=== PATIENT | male | born 1980 | race Caucasian/White ===

== ENCOUNTER → 2019-12-16 07:04 | Outpatient (NON) | payer MEDICARE, SELFPAY ==
[2019-12-17 02:03] LABS: SARS-CoV-2 RNA PCR Positive
== END ==
PROVIDERS: Visit Provider Internal Medicine
DX: U07.1 COVID-19 (principal)
CPT/HCPCS: 87635; C9803; U0003

== ENCOUNTER 2019-12-16 12:09 | Inpatient (IN) | payer MEDICARE, MEDICAID, SELFPAY ==
[2019-12-16] VITALS (9 sets, daily range): BP systolic 121–147; BP diastolic 77–87; PULSE 88–99; RESP 16–33; TEMP 37.2–37.6; O2SAT 96–98; BMI 32.5
--- NOTE | ~2019-12-16 | XR_ITS ---
EXAMINATION: XR chest 1V portable DATE: 12/16/2019 13:15 INDICATION: Shortness of breath. Cough. TECHNIQUE: A single frontal view of the chest was obtained. COMPARISON: Chest 2 views 01/09/2018 FINDINGS: Lung volumes are small. There are patchy airspace opacities involving all lung zones bilate rally. No pleural effusion or pneumothorax. Cardiomegaly is noted. IMPRESSION: 1. Diffuse lung disease, consistent with pneumonia or less likely pulmonary edema. 2. Cardiomegaly, which may be exaggerated by anteroposterior technique. Reviewed, dictated and finalized at location A. IMPRESSION: 1. Diffuse lung disease, consistent with pneumonia or less likely pulmonary k[place] ma. 2. Cardiomegaly, which may be exaggerated by anteroposterior technique.
--- NOTE | 2019-12-16 12:37 | ECG_ITS ---
Measurements Intervals [place] Rate: 92 P: 32 MN: 141 QRS: 0 QRSD: 78 T: 58 QT: 346 QTc: 430 Interpretive Statements SINUS RHYTHM VOLTAGE CRITERIA FOR LVH BASELINE ARTIFACT- III, AVL, V3 BORDERLINE ECG Electronically Signed On 12-16-2019 13:08:24 CDT by Alejandro Downey D.O.
[2019-12-16 12:49] LABS: Basophils Percent Auto 0.2 % (0.2-1.2); Hematocrit 37.6 % (42.0-52.0); Hemoglobin 12.7 g/dL (14.0-18.0); Immature Granulocyte Absolute 0.01 K/mm3 (0.00-0.031); Immature Granulocyte Percent A 0.2 % (0-0.5); Lymphocytes Absolute Auto 0.58 K/mm3 (0.9-3.2); Lymphocytes Percent Auto 12.3 % (18.3-44.2); Mean Corpuscular HGB Conc 33.8 g/dl (32-36); Mean Corpuscular Hemoglobin 33.1 pg (26-34); Mean Corpuscular Volume 97.9 fl (80-100); Monocytes Absolute Auto 0.3 K/mm3 (0.1-0.6); Monocytes Percent Auto 6.3 % (2.6-8.5); Neutrophils Absolute Auto 3.8 K/mm3 (1.3-6.7); Platelet Count Result 165 k/mm3 (150-375); Red Blood Count 3.84 M/mm3 (4.6-6.20); Red Cell Distribution Width 14.7 % (11.5-14.5); White Blood Count 4.7 K/mm3 (4.5-10.0)
--- NOTE | 2019-12-16 13:01 | ED.URI ---
HPI - URI/Sore Throat General Chief Complaint: Upper Respiratory Infection <MELVI Redman Last Filed: 12/16/19 15:25> Stated Complaint: Cough, covid tested today <MELVI Redman Last Filed: 12/16/19 15:25> Time Seen by Provider: 12/16/19 12:51 <MELVI Redman Last Filed: 12/16/19 15:25> Source: patient <MELVI Redman Last Filed: 12/16/19 15:25> Mode of arrival: ambulatory <MELVI Redman Last Filed: 12/16/19 15:25> Limitations: no limitations <MELVI Redman Last Filed: 12/16/19 15:25> History of Present Illness HPI Narrative: This is a 39 year old male that presents to the ER for shortness of breath. Reports cold symptoms for the last 5 days. Reports congestion, sore throat, and cough. Reports he is becoming more short of breath. He was seen by his primary and had an outpatient COVID swab today. Denies chest pain. <MELVI Redman Last Filed: 12/16/19 15:25> Related Data Allergies/Adverse Reactions: Allergies Allergy/AdvReac Type Severity Reaction Status Date / Time azithromycin Allergy Intermediate Dyspnea / Verified 09/08/19 14:06 SOB clindamycin Allergy Intermediate Rash Verified 09/08/19 14:06 gentamicin Allergy Intermediate Dyspnea / Verified 09/08/19 14:06 SOB morphine Allergy Intermediate increased Verified 09/08/19 14:06 pain povidone-iodine Allergy Intermediate Itching Verified 09/08/19 14:06 soap Allergy Intermediate Itching Verified 09/08/19 14:06 vancomycin Allergy Intermediate Rash Verified 09/08/19 14:06 <MELVI Redman Last Filed: 12/16/19 15:25> Review of Systems Review of Systems: Narrative: CONSTITUTIONAL: Denies fever ENT: Reports rhinorrhea, congestion, sore throat CARDIOVASCULAR: Denies chest pain RESPIRATORY: Reports cough and dyspnea. NEUROLOGIC: Reports weakness. <MELVI Redman Last Filed: 12/16/19 15:25> All systems reviewed & are unremarkable except as noted in HPI and below <Lisa Hernandez PA-C - Last Filed: 12/16/19 15:25> PMFSH Past Medical History Medical History: Medical History (Updated 12/16/19 @ 15:12 by Lisa Hernandez PA-C) Alports syndrome Generalized anxiety disorder Primary osteoarthritis involving multiple joints Tobacco use disorder <Lisa Hernandez PA-C - Last Filed: 12/16/19 15:25> Surgical History Surgical History: Surgical History (Updated 12/16/19 @ 15:09 by Lisa Hernandez PA-C) History of kidney transplant <Lisa Hernandez PA-C - Last Filed: 12/16/19 15:25> Social History Social History: Social History Smoking status: Never smoker Gender identity (if verbalized by the patient): Male <Lisa Hernandez PA-C - Last Filed: 12/16/19 15:25> Exam Narrative: Exam Narrative: GENERAL: Well-appearing, well-nourished, and in no acute distress. HEAD: Normocephalic, atraumatic. EYES: EOMI. ENT: Nares clear, no rhinorrhea or epistaxis. Mucous membranes moist. Oropharynx without tonsillar hypertrophy exudate or other lesions. Bilateral TMs pearly lundberg non-bulging NECK: Supple. No adenopathy or masses. CHEST: Clear to auscultation. No respiratory distress. No wheezes rales or rhonchi HEART: Regular rate and rhythm. No murmur heard. Normal peripheral pulses. EXTREMITIES: Normal range of motion. No edema. SKIN: Warm, dry, no rash. NEURO: No focal deficits. Alert and oriented x3. PSYCH: Normal mood and affect <Lisa Hernandez PA-C - Last Filed: 12/16/19 15:25> Course MANAGER GENERATION/PA Physician Supervision For this encounter, I have reviewed the PA documentation, treatment plan and medical decision making: And I have had [id number] time with the patient. Had extensive conversation with the patient regarding need for admission and further work-up discussed concerns of COVID treatment for pneumonia in agreement with admission at this time all questions answered <Davis Judd DO - Last Filed:
[2019-12-16 13:04] LABS: Lactic Acid Reflex 1.1 mmol/L (0.7-2.1)
[2019-12-16 13:07] LABS: Alanine Aminotransferase 54 U/L (4-50); Albumin Level 4.1 g/dL (3.5-5.1); Alkaline Phosphatase 88 U/L (38-126); Anion Gap 15.6 mmol/L (7-16); Aspartate Amino Transferase 65 U/L (17-59); Bilirubin,Total 0.6 mg/dL (0.2-1.3); Blood Urea Nitrogen 19 mg/dL (9-20); CRP 5.6 mg/dL (<1.0); Calcium 8.5 mg/dL (8.4-10.2); Carbon Dioxide 18 mmol/L (22-30); Chloride 108 mmol/L (98-107); Estimated CRCL calculation 65 ml/min; Estimated Glomerular Filt Rate 48; Glucose 110 mg/dL (75-110); Lactate Dehydrogenase 718 U/L (313-618); Potassium 4.6 mmol/L (3.4-5.0); Sodium 137 mmol/L (137-145)
[2019-12-16 13:58] LABS: Troponin I 0.017 ng/mL (0.000-0.034)
[2019-12-16 14:04] LABS: D Dimer < 0.22 ug/mL (<0.48)
--- NOTE | 2019-12-16 14:54 | PCRCNOTE ---
PT refused abg, doctor is aware
--- NOTE | 2019-12-16 17:05 | PC.NURSE ---
This patient, Jose Aguilar, was admitted to [facility] Surg Room 330-01. Patient/family oriented to hospital policies and general routines including ID bracelet, bed and alarms, visiting hours, pain management, procedures, bathroom and other care routines, personal items, smoking policy, room service/diet, and visiting hours. Valuables list has been completed. Information on how to activate the Rapid Response Team has been discussed. Patient/Family are encouraged to report perceived risks to care and to ask questions if they do not understand what they are told or what they should do.
--- NOTE | 2019-12-16 21:42 | PM.IMHP ---
H&P: HPI History of Present Illness Chief complaint: Pneumonia Narrative: Jose Aguilar is a 39 year old male Who has a history of end-stage renal disease. The patient has had 2 kidney transplants in the past and he is on anti rejection medication. He did have his transplants at [facility]. The patient was made aware that we do not carry his anti rejection medications but he does have them with him. His creatinine today is 1.6 and he states that is his normal. Patient has had a history of having alports Syndrome. The patient has not been feeling well for at least 5 days. He has been coughing feverish short of breath loss of smell loss of taste he has had congestion sore throat and 100.5 fever. The patient went to his primary care doctor and was swabbed for covid 19 outpatient. He is currently on room air. HEENT he has been on prednisone daily. The patient is being admitted for observation due to his immunosuppressive history. He is not currently on any oxygen is room air. The patient has not traveled any stated that he has not been around anybody that he is aware of that has covid 19. He lives with his mom and dad . He was getting ready to move out today. The patient had been given IV Tylenol and Levaquin. Awaiting outpatient COVID testing. His AST and ALT are slightly elevated. LDH is 718. CRP is 5.6. His temperature is within normal limits and he is on room air. Chest x-ray was read as diffuse lung disease, consistent with pneumonia or less likely pulmonary edema. Cardiomegaly which may be exaggerated by anterior-posterior technique. I have spent approximately 1 hour on the patient is he is in isolation. Date of service 12/16/2019 Review of Systems Review of Systems: All systems reviewed & are unremarkable except as noted in HPI and below Constitutional: Constitutional: Reports as per HPI and Reports no additional constitutional complaints Eyes: Eyes: Reports as per HPI and Reports no additional eye complaints ENT: Reports system reviewed and no additional complaints, except as documented and Reports Normal hearing present Cardiovascular: Cardiovascular: Reports no additional cardiovascular complaints Respiratory: Respiratory: Reports no additional respiratory complaints and Reports no additional respiratory complaints Gastrointestinal: Gastrointestinal: Reports as per HPI and Reports no additional gastrointestinal complaints Musculoskeletal: Musculoskeletal: Reports no additional musculoskeletal complaints Integumentary/Breasts: Skin/Breast: Reports system reviewed and no additional complaints, except as docu and Reports as per HPI Neurologic: Reports system reviewed and no additional complaints, except as documented, Reports as per HPI and Reports Normal hearing present Psychiatric: Psychiatric: Reports no additional psychiatric complaints and Reports as per HPI Endocrine: Endocrine: Reports no additional endocrine complaints Hematologic/Lymphatic: Hematologic/Lymphatic: Reports no additional hematologic/lymphatic complaints Allergic/Immunologic: Allergic/Immunologic: Reports no additional allergic/immunologic complaints [facility] Past Medical History Medical History (Updated 12/16/19 @ 22:07 by Princess Stoner NP) Alports syndrome Dialysis AV fistula infection left forearm Generalized anxiety disorder Hypertension Primary osteoarthritis involving multiple joints Tobacco use disorder Surgical History Surgical History (Updated 12/16/19 @ 21:55 by Princess Stoner NP) History of kidney transplant x2 Family History Family History (Updated 12/16/19 @ 21:59 by Princess Stoner NP) Mother Hypertension ESRD (end stage renal disease) Sibling ESRD (end stage renal disease) Heart disease Social History Social History (Updated 12/16/19 @ 22:01 by Princess Stoner NP) Social History: patient stated that he still continues to smoke a half pack a cigarettes a day for at least the la
[2019-12-17] VITALS (14 sets, daily range): BP systolic 118–141; BP diastolic 67–86; PULSE 74–92; RESP 16–22; TEMP 36.8–37.8; O2SAT 94–100
[2019-12-17] MEDS: ERTAPENEM 1 GM/NS 50 ML 1 GM/50 ML BAG IVPB ×2 (00:32→21:34)
--- NOTE | 2019-12-17 06:04 | PHAR ---
PT'S HOME MED ENVARSUS XR 1 MG TAB VERIFIED BY PHARMACY
[2019-12-17 06:21] LABS: Eosinophils Percent Auto 0.4 % (0-4.4); Hemoglobin 11.3 g/dL (14.0-18.0); Lymphocytes Absolute Auto 0.46 K/mm3 (0.9-3.2); Lymphocytes Percent Auto 17.2 % (18.3-44.2); Mean Corpuscular HGB Conc 33.2 g/dl (32-36); Mean Corpuscular Hemoglobin 32.8 pg (26-34); Mean Corpuscular Volume 98.6 fl (80-100); Monocytes Absolute Auto 0.2 K/mm3 (0.1-0.6); Monocytes Percent Auto 7.5 % (2.6-8.5); Neutrophils Percent Auto 74.9 % (45.5-73.1); Platelet Count Result 142 k/mm3 (150-375); Red Blood Count 3.45 M/mm3 (4.6-6.20); Red Cell Distribution Width 14.3 % (11.5-14.5); White Blood Count 2.7 K/mm3 (4.5-10.0)
[2019-12-17 06:31] LABS: Lactic Acid 0.5 mmol/L (0.7-2.1)
[2019-12-17 06:36] LABS: Alanine Aminotransferase 43 U/L (4-50); Albumin Level 3.6 g/dL (3.5-5.1); Alkaline Phosphatase 75 U/L (38-126); Anion Gap 13.4 mmol/L (7-16); Aspartate Amino Transferase 44 U/L (17-59); Bilirubin,Total 0.4 mg/dL (0.2-1.3); Blood Urea Nitrogen 25 mg/dL (9-20); CRP 6.5 mg/dL (<1.0); Calcium 8.1 mg/dL (8.4-10.2); Carbon Dioxide 18 mmol/L (22-30); Chloride 107 mmol/L (98-107); Estimated CRCL calculation 65 ml/min; Estimated Glomerular Filt Rate 48; Glucose 97 mg/dL (75-110); Lactate Dehydrogenase 555 U/L (313-618); Potassium 4.4 mmol/L (3.4-5.0); Sodium 134 mmol/L (137-145)
[2019-12-17] MEDS: allopurinoL 100 MG TABLET PO (08:30)
[2019-12-17] MEDS: CITALOPRAM HYDROBROMIDE 20 MG TABLET 40 MG PO (08:30)
[2019-12-17] MEDS: PANTOPRAZOLE 40 MG TABLET PO ×2 (08:31→15:49)
[2019-12-17] MEDS: predniSONE 5 MG TABLET PO (08:31)
[2019-12-17] MEDS: cloNIDine HCL 0.1 MG TABLET 0.3 MG PO (08:31)
--- NOTE | 2019-12-17 16:37 | PM.IMPN ---
Progress Note: A&P Assessment and Plan (1) Generalized anxiety disorder: Code(s): F41.1 - Generalized anxiety disorder Status: Chronic Assessment and Plan: Ordered anxiolytic (2) Hypertension: Code(s): I10 - Essential (primary) hypertension Status: Chronic Assessment and Plan: continue home medications (3) Viral infection: Code(s): B34.9 - Viral infection, unspecified Status: Acute Assessment and Plan: Pt is covid positive, ordered oxygen and albuterol inhaler suportive care (4) Pneumonia: Qualifiers: Laterality: bilateral Lung location: lower lobe of lung Pneumonia type: due to unspecified organism Qualified Code(s): J18.9 - Pneumonia, unspecified organism Code(s): J18.9 - Pneumonia, unspecified organism Status: Acute Assessment and Plan: pt is on iv ertapenem (5) COVID-19: Code(s): U07.1 - COVID-19 Status: Acute Assessment and Plan: Pt told he is covid positive, unwell to get hold of renal transplant person as it is the weekend, discussed briefly with ID and nephrology about patient.Both agree pt is stable now but needs to be transfered to [place]. Pt can start on remdesivir and iv dexadron if needed. Needs daily tacrolimus level. Subjective Date/time seen: 12/17/19 16:37 Interval history: 39 year old male Who has a history of end-stage renal disease. The patient has had 2 kidney transplants in the past and he is on anti rejection medication. He did have his transplants at [facility]. Has been very unwell, found to be covid positive. I discussed his case briefly with nephrology ok to continue tacrolimus and ertapenem medication and continue monitoring kidney function. Pt has a due diligence coordinator [phone]. I will call them to check on remdesivir and steroids. Pt is stable on 2 liters but specialists and i agree he should be transferred. Working on getting pt transfered Review of Systems Review of Systems: ROS unobtainable: Yes other (not eating not sleeping good ) Respiratory: Respiratory: Reports chest congestion, Reports excessive phlegm production and Reports dyspnea Exam Narrative: Exam Narrative: Temp Pulse Resp BP Pulse Ox 36.8 C 79 16 118/67 98 12/17/19 14:04 12/17/19 14:04 12/17/19 14:04 12/17/19 14:04 12/17/19 14:04 General: Pt is on oxygen coughing in the room, [place]. Pt wears Hearing aids pt looks anxious HENMT: General nose exam: Normal nares present Mouth: Yes moist mucous membranes Eyes: Sclera: sclerae normal Neck: Other: no retraction Resp: Effort & Inspection: normal respiratory effort GI: Other: not distended Skin: General skin exam: normal color Neuro: Speech: normal speech Objective Data Vital Signs Vital Signs: Vital Signs - 24 hr 12/16/19 16:40 12/16/19 17:35 12/16/19 17:40 Temperature 37.2 C 37.2 C Pulse Rate 89 90 Respiratory Rate 24 H 22 H Blood Pressure 140/82 121/84 Pulse Oximetry 96 96 12/16/19 20:00 12/16/19 22:00 12/17/19 00:00 Temperature 37.4 C Pulse Rate 91 88 86 Respiratory Rate 20 Blood Pressure 133/80 Pulse Oximetry 96 12/17/19 01:30 12/17/19 02:00 12/17/19 04:00 Temperature 37.8 C H 37.2 C Pulse Rate 92 76 Respiratory Rate 20 Blood Pressure 121/85 Pulse Oximetry 97 12/17/19 06:00 12/17/19 08:00 12/17/19 10:00 Temperature 37.2 C 37.1 C Pulse Rate 78 84 91 Respiratory Rate 22 H 18 Blood Pressure 125/83 124/77 Pulse Oximetry 98 94 99 12/17/19 12:00 12/17/19 14:01 12/17/19 14:04 Temperature 36.8 C Pulse Rate 74 79 Respiratory Rate 16 Blood Pressure 118/67 Pulse Oximetry 98 98 Intake/Output Intake/Output: Intake & Output 12/14/19 12/15/19 12/16/19 12/17/19 23:59 23:59 23:59 23:59 Intake Total 850
[2019-12-17] MEDS: ALPRAZolam 0.25 MG TABLET PO (19:51)
[2019-12-17] MEDS: ACETAMINOPHEN 500 MG TABLET 1000 MG PO (22:25)
--- NOTE | 2019-12-17 23:38 | PC.NURSE ---
Doctor Barb called and stated he was not accepting the consult on this patient. Princess Stoner informed of refusal of consult.
[2019-12-18] VITALS (13 sets, daily range): BP systolic 107–147; BP diastolic 63–86; PULSE 68–89; RESP 18; TEMP 36.8–37.4; O2SAT 92–100
[2019-12-18] MEDS: allopurinoL 100 MG TABLET PO (08:10)
[2019-12-18] MEDS: predniSONE 5 MG TABLET PO (08:10)
[2019-12-18] MEDS: MEGESTROL ACETATE (*CHEMO) 20 MG TABLET PO (08:10)
[2019-12-18] MEDS: CITALOPRAM HYDROBROMIDE 20 MG TABLET 40 MG PO (08:11)
[2019-12-18] MEDS: cloNIDine HCL 0.1 MG TABLET 0.3 MG PO (08:11)
[2019-12-18] MEDS: PANTOPRAZOLE 40 MG TABLET PO ×2 (08:11→16:42)
--- NOTE | 2019-12-18 17:48 | WPDINFPN2 ---
Progress Note: A&P Additional Plan Discussed with hospitalist today. Patient is to be transferred to transplant center. Consult is to be canceled. Thank you Subjective Date/time seen: 12/18/19 17:48 Objective Data Vital Signs Vital Signs: Vital Signs - 24 hr 12/17/19 18:00 12/17/19 20:00 12/17/19 22:00 Temperature 36.8 C 37.7 C H Pulse Rate 79 79 82 Respiratory Rate 16 18 Blood Pressure 141/86 H 135/81 Pulse Oximetry 100 98 12/18/19 00:00 12/18/19 02:00 12/18/19 04:00 Temperature 37.2 C Pulse Rate 71 82 89 Respiratory Rate 18 Blood Pressure 122/78 Pulse Oximetry 99 12/18/19 06:00 12/18/19 08:00 12/18/19 08:36 Temperature 36.8 C Pulse Rate 82 Respiratory Rate 18 Blood Pressure 147/86 H Pulse Oximetry 98 92 96 12/18/19 10:00 12/18/19 12:00 12/18/19 14:00 Temperature 36.8 C 36.8 C Pulse Rate 75 71 75 Respiratory Rate 18 18 Blood Pressure 107/64 110/70 Pulse Oximetry 98 99 12/18/19 16:00 Temperature Pulse Rate 70 Respiratory Rate Blood Pressure Pulse Oximetry Intake/Output Intake/Output: Intake & Output 12/15/19 12/16/19 12/17/19 12/18/19 23:59 23:59 23:59 23:59 Intake Total 850 2510 1430 Output Total 1200 400 Balance 850 1310 1030 Meds/Results Medications: Active Medications Generic Name Dose Route Start Last Admin Trade Name Freq PRN Reason Stop Dose Admin Acetaminophen 1,000 mg 12/17/19 22:09 12/17/19 22:25 Tylenol Tablet PO 1,000 mg Q6H PRN Administration Mild Pain (1-3) or Fever Albuterol 2 puff 12/16/19 22:01 Proventil Hfa INHALATION QIDRT PRN Shortness Of Breath Allopurinol 100 mg 12/17/19 09:00 12/18/19 08:10 Zyloprim PO 100 mg DAILY MORENITA Administration Alprazolam 0.25 mg 12/17/19 18:10 12/17/19 19:51 Xanax PO 0.25 mg TID PRN Administration Anxiety Citalopram Hydrobromide 40 mg 12/17/19 09:00 12/18/19 08:11 Celexa PO 40 mg DAILY MORENITA Administration Clonidine HCl 0.3 mg 12/17/19 09:00 12/18/19 08:11 Catapres PO 0.3 mg DAILY MORENITA Administration Ertapenem 1 gm in 50 mls @ 100 mls/hr 12/16/19 22:05 12/17/19 22:04 Invanz 1 Gm/Ns 50 Ml IVPB Infused Q24H MORENITA Infusion Megestrol Acetate 20 mg 12/18/19 09:00 12/18/19 08:10 Megace PO 20 mg QAM MORENITA Administration Pantoprazole Sodium 40 mg 12/17/19 09:00 12/18/19 16:42 Protonix PO 40 mg BID MORENITA Administration Prednisone 5 mg 12/17/19 09:00 12/18/19 08:10 Prednisone PO 5 mg DAILY MORENITA Administration Radiology Results: ITS Impressions Chest X-Ray 12/16/19 13:22 IMPRESSION: 1. Diffuse lung disease, consistent with pneumonia or less likely pulmonary edema. 2. Cardiomegaly, which may be exaggerated by anteroposterior technique.
[2019-12-18] MEDS: ACETAMINOPHEN 500 MG TABLET 1000 MG PO (17:55)
--- NOTE | 2019-12-18 18:19 | PM.IMPN ---
Progress Note: A&P Assessment and Plan (1) Generalized anxiety disorder: Code(s): F41.1 - Generalized anxiety disorder Status: Chronic Assessment and Plan: Ordered anxiolytic (2) Hypertension: Code(s): I10 - Essential (primary) hypertension Status: Chronic Assessment and Plan: continue home medications (3) Viral infection: Code(s): B34.9 - Viral infection, unspecified Status: Acute Assessment and Plan: Pt is covid positive, ordered oxygen and albuterol inhaler suportive care (4) Pneumonia: Qualifiers: Laterality: bilateral Lung location: lower lobe of lung Pneumonia type: due to unspecified organism Qualified Code(s): J18.9 - Pneumonia, unspecified organism Code(s): J18.9 - Pneumonia, unspecified organism Status: Acute Assessment and Plan: pt is on iv ertapenem (5) COVID-19: Code(s): U07.1 - COVID-19 Status: Acute Assessment and Plan: Pt told he is covid positive, unwell to get hold of renal transplant person as it is the weekend, discussed briefly with ID and nephrology about patient.Both agree pt is stable now but needs to be transfered to [place]. Pt can start on remdesivir and iv dexadron if needed. Needs daily tacrolimus level. Subjective Date/time seen: 12/18/19 18:19 Interval history: 39 year old male Who has a history of end-stage renal disease. The patient has had 2 kidney transplants in the past and he is on anti rejection medication. He did have his transplants at [facility]. Has been very unwell, found to be covid positive. I discussed his case briefly with nephrology ok to continue tacrolimus and ertapenem medication and continue monitoring kidney function. Pt has a charge master coordinator [phone]. I will call them to check on remdesivir and steroids. Pt is stable on 2 liters but specialists and i agree he should be transferred. Working on getting pt transfered. coordinator not picking up. megace and anxiolytic. appetite still poor and feels weak. Review of Systems Review of Systems: ROS unobtainable: Yes other (not eating not sleeping good difficulty hearing very anxious ) Constitutional: Constitutional: Reports as per HPI Cardiovascular: Cardiovascular: Reports dyspnea Respiratory: Respiratory: Reports chest congestion, Reports excessive phlegm production and Reports dyspnea Gastrointestinal: Gastrointestinal: Reports as per HPI Integumentary/Breasts: Skin/Breast: Reports as per HPI Neurologic: Reports as per HPI Psychiatric: Psychiatric: Reports as per HPI Exam Narrative: Exam Narrative: Temp Pulse Resp BP Pulse Ox 36.8 C 79 16 118/67 98 12/17/19 14:04 12/17/19 14:04 12/17/19 14:04 12/17/19 14:04 12/17/19 14:04 General: Pt is on oxygen coughing in the room, [place]. Pt wears Hearing aids pt looks anxious HENMT: General nose exam: Normal nares present Mouth: Yes moist mucous membranes Eyes: Sclera: sclerae normal Neck: Other: no retraction Resp: Effort & Inspection: normal respiratory effort GI: Other: not distended Skin: General skin exam: normal color Neuro: Speech: normal speech Objective Data Vital Signs Vital Signs: Vital Signs - 24 hr 12/17/19 20:00 12/17/19 22:00 12/18/19 00:00 Temperature 37.7 C H Pulse Rate 79 82 71 Respiratory Rate 18 Blood Pressure 135/81 Pulse Oximetry 98 12/18/19 02:00 12/18/19 04:00 12/18/19 06:00 Temperature 37.2 C 36.8 C Pulse Rate 82 89 82 Respiratory Rate 18 18 Blood Pressure 122/78 147/86 H Pulse Oximetry 99 98 12/18/19 08:00 12/18/19 08:36 12/18/19 10:00 Temperature 36.8 C Pulse Rate 75 Respiratory Rate 18 Blood Pressure 107/64 Pulse Oximetry 92 96 98 12/18/19 12:00 12/18/19 14:00 12/18/19 16:00 Temperature
[2019-12-18] MEDS: ERTAPENEM 1 GM/NS 50 ML 1 GM/50 ML BAG IVPB (20:46)
[2019-12-18] MEDS: ALPRAZolam 0.5 MG TABLET PO (20:46)
[2019-12-19] VITALS (18 sets, daily range): BP systolic 96–138; BP diastolic 54–82; PULSE 63–83; RESP 16–32; TEMP 36.6–38.2; O2SAT 92–99
[2019-12-19] MEDS: MEGESTROL ACETATE (*CHEMO) 20 MG TABLET PO (09:50)
[2019-12-19] MEDS: PANTOPRAZOLE 40 MG TABLET PO ×2 (09:50→18:23)
[2019-12-19] MEDS: CITALOPRAM HYDROBROMIDE 20 MG TABLET 40 MG PO (09:51)
[2019-12-19] MEDS: cloNIDine HCL 0.1 MG TABLET 0.3 MG PO (09:51)
[2019-12-19] MEDS: allopurinoL 100 MG TABLET PO (09:51)
[2019-12-19] MEDS: predniSONE 5 MG TABLET PO (09:52)
[2019-12-19] MEDS: ACETAMINOPHEN 500 MG TABLET 1000 MG PO (09:53)
[2019-12-19] MEDS: ALPRAZolam 0.5 MG TABLET PO ×2 (13:32→21:28)
--- NOTE | 2019-12-19 16:27 | PM.IMPN ---
Progress Note: A&P Assessment and Plan (1) Generalized anxiety disorder: Code(s): F41.1 - Generalized anxiety disorder Status: Chronic Assessment and Plan: Ordered anxiolytic (2) Hypertension: Code(s): I10 - Essential (primary) hypertension Status: Chronic Assessment and Plan: continue home medications (3) Viral infection: Code(s): B34.9 - Viral infection, unspecified Status: Acute Assessment and Plan: Pt is covid positive, ordered oxygen and albuterol inhaler suportive care (4) Pneumonia: Qualifiers: Laterality: bilateral Lung location: lower lobe of lung Pneumonia type: due to unspecified organism Qualified Code(s): J18.9 - Pneumonia, unspecified organism Code(s): J18.9 - Pneumonia, unspecified organism Status: Acute Assessment and Plan: pt is on iv ertapenem started on iv remdesivir and dexadron (5) COVID-19: Code(s): U07.1 - COVID-19 Status: Acute Assessment and Plan: Pt told he is covid positive, unwell to get hold of renal transplant person as it is the weekend, discussed briefly with ID and nephrology about patient.Both agree pt is stable now but needs to be transfered to [place]. Pt can start on remdesivir and iv dexadron today Needs daily tacrolimus level. AWaiting bed Subjective Date/time seen: 12/19/19 16:27 Interval history: CLARIFICATION to PROGRESS NOTE 39 year old male Who has a history of end-stage renal disease. The patient has had 2 kidney transplants in the past and he is on anti rejection medication. He did have his transplants at [facility]. Has been very unwell, found to be covid positive. I discussed his case briefly with ID ok to continue tacrolimus. Can start remdesivir IV and dexamethsone IV and continue IV ertapenem medication, continue monitoring kidney function. Pt has a acquisition marketing coordinator [phone]. coordinator not picking up. megace and anxiolytic alread started. appetite still poor and feels weak. Continue oxygen supplementation Pt is accepted to [facility] awaiting transfer to higher level of care. Discussed with ID adviced to start treatment, no official consult made Nephrology consulted for tomorrow to see patient Review of Systems Review of Systems: ROS unobtainable: Yes other (sob cough unwell ) Exam Narrative: Exam Narrative: Temp Pulse Resp BP Pulse Ox 36.7 C 76 32 H 96/54 L 96 12/19/19 14:00 12/19/19 14:00 12/19/19 14:00 12/19/19 14:00 12/19/19 14:00 Temp Pulse Resp BP Pulse Ox 36.8 C 79 16 118/67 98 12/17/19 14:04 12/17/19 14:04 12/17/19 14:04 12/17/19 14:04 12/17/19 14:04 General: Pt is on oxygen coughing in the room, [place]. Pt wears Hearing aids pt looks anxious Mild respiratory distress Resp: Effort & Inspection: normal respiratory effort GI: Other: not distended Skin: General skin exam: normal color Neuro: Speech: normal speech Objective Data Vital Signs Vital Signs: Vital Signs - 24 hr 12/18/19 18:00 12/18/19 20:00 12/18/19 22:00 Temperature 37.0 C 37.4 C Pulse Rate 74 68 69 Respiratory Rate 18 18 Blood Pressure 113/63 122/69 Pulse Oximetry 98 100 12/19/19 00:00 12/19/19 02:00 12/19/19 04:00 Temperature 37.4 C Pulse Rate 64 81 73 Respiratory Rate 18 Blood Pressure 135/79 Pulse Oximetry 98 12/19/19 06:00 12/19/19 08:00 12/19/19 09:10 Temperature 36.9 C Pulse Rate 63 66 Respiratory Rate 16 Blood Pressure 108/62 Pulse Oximetry 99 97 12/19/19 09:53 12/19/19 10:00 12/19/19 12:00 Temperature 38.2 C H 38.2 C H Pulse Rate 83 65 Respiratory Rate 32 H Blood Pressure 133/82 Pul
[2019-12-19] MEDS: REMDESIVIR 200 MG/NS 250 ML 200 MG/250 ML BAG 250 MG IVPB (18:24)
[2019-12-21 22:05] LABS: Tacrolimus Prograf 29.6 mcg/L
[2019-12-23 02:11] LABS: Tacrolimus Prograf 12.9 mcg/L
--- NOTE | 2019-12-31 15:06 | PM.TDS ---
Transfer Discharge Sum: Prov Provider Date of admission: 12/17/19 11:20 Date of discharge 12/19/2019 Primary care physician: Maulik Leach Jr., MD Admitting clinician: Quyen Ryder MD DS: Admitting Diagnosis Admitting Diagnosis Admitting Diagnosis: Pneumonia DS: Discharge Diagnosis Discharge Diagnosis (1) Generalized anxiety disorder: Code(s): F41.1 - Generalized anxiety disorder Status: Chronic Assessment and Plan: Ordered anxiolytic (2) Hypertension: Code(s): I10 - Essential (primary) hypertension Status: Chronic Assessment and Plan: continue home medications (3) Viral infection: Code(s): B34.9 - Viral infection, unspecified Status: Acute Assessment and Plan: Pt is covid positive, ordered oxygen and albuterol inhaler suportive care (4) Pneumonia: Qualifiers: Laterality: bilateral Lung location: lower lobe of lung Pneumonia type: due to unspecified organism Qualified Code(s): J18.9 - Pneumonia, unspecified organism Code(s): J18.9 - Pneumonia, unspecified organism Status: Acute Assessment and Plan: pt is on iv ertapenem started on iv remdesivir and dexadron (5) COVID-19: Code(s): U07.1 - COVID-19 Status: Acute Assessment and Plan: Pt told he is covid positive, unwell to get hold of renal transplant person as it is the weekend, discussed briefly with ID and nephrology about patient.Both agree pt is stable now but needs to be transfered to [place]. Pt can start on remdesivir and iv dexadron today Needs daily tacrolimus level. AWaiting bed. 39 year old male Who has a history of end-stage renal disease. The patient has had 2 kidney transplants in the past and he is on anti rejection medication. He did have his transplants at [facility]. Has been very unwell, found to be covid positive. I discussed his case briefly with ID ok to continue tacrolimus. Continue monitoring kidney function. Pt has a records management coordinator [phone]. coordinator not picking up. megace and anxiolytic already started. appetite still poor and feels weak. Pt is accepted to [facility] awaiting transfer to higher level of care. Discussed with ID adviced to start treatment, no official consult made Nephrology consulted for tomorrow to see patient. Pt on oxygen supplementation and IV ertapenem, remdesivir and dexamethasone orderd but pt is accepted to [facility]. Transfer Discharge Sum: Med Medications Active and Home Medications: Home Medications prednisone 5 mg tablet 5 mg PO DAILY #30 tablet 09/08/19 [Rx Confirmed 12/16/19] citalopram 40 mg tablet 40 mg PO DAILY #30 tablet 10/05/19 [Rx Confirmed 12/16/19] clonidine HCl 0.3 mg tablet 0.3 mg PO DAILY #30 tablet 10/05/19 [Rx Confirmed 12/16/19] omeprazole 40 mg capsule,delayed release 40 mg PO DAILY #30 cap 11/23/19 [Rx Confirmed 12/16/19] allopurinol 100 mg PO DAILY 12/16/19 [History Confirmed 12/16/19] sulfamethoxazole-trimethoprim 1 tablet PO DAILY 12/16/19 [History Confirmed 12/16/19] tacrolimus [Envarsus XR] 4 mg PO DAILY 12/16/19 [History Confirmed 12/16/19] Transfer Discharge Sum: Hosp Hospital Course Hospital course: Pt told he is covid positive, unwell to get hold of renal transplant person as it is the weekend, discussed briefly with ID and nephrology about patient.Both agree pt is stable now but needs to be transfered to [place]. Pt can start on remdesivir and iv dexadron today Needs daily tacrolimus level. Awaiting bed. 39 year old male who has a history of end-stage renal disease. The patient has had 2 kidney transplants in the past and he is on anti rejection medication. He did have his transplants at [facility]. Has been very unwell, found to be covid positive. I discussed his case briefly with ID ok to continue tacrolimus. Continue monitoring kidney function. Pt has a records management coordinator [phone]. coordinator not picking up.
== END 2019-12-19 21:50 | disposition short-term general hospital (02) | DRG 177 ==
LOC: ANHED 15:12 → ANH3MEDSUR 15:47
PROVIDERS: Nurse Practitioner; Physician Assistant; Admitting Provider Family Medicine; Emergency Provider Emergency Medicine; PCP Internal Medicine; Visit Provider Family Medicine
DX: U07.1 COVID-19; N18.6 End stage renal disease; J12.89 Other viral pneumonia; I12.0 Hypertensive chronic kidney disease with stage 5 chronic kidney disease or end stage renal disease; Z94.0 Kidney transplant status; Q87.81 Alport syndrome; F33.9 Major depressive disorder, recurrent, unspecified; F41.1 Generalized anxiety disorder; F17.210 Nicotine dependence, cigarettes, uncomplicated; M89.49 Other hypertrophic osteoarthropathy, multiple sites; Z79.899 Other long term (current) drug therapy; Z75.1 Person awaiting admission to adequate facility elsewhere
CPT/HCPCS: 36415; 71045; 80053; 80197; 82728; 83605; 83615; 84484; 85025; 85380; 86140; 87040; 87635; 93005; 96365; 96366; 99285; A9270; C9803; J0131; J1100; J1335; J1956; J7512; U0003

== ENCOUNTER 2020-09-05 10:17 | Emergency (ER) | payer MEDICARE, MEDICAID, SELFPAY ==
--- NOTE | ~2020-09-05 | XR_ITS ---
EXAMINATION: XR chest 2V DATE: 09/05/2020 12:55 INDICATION: Cough and shortness of breath. TECHNIQUE: Frontal and lateral views of the chest were obtained. COMPARISON: Chest single view 12/16/2019 FINDINGS: The chest demonstrates clear lungs without pneumonia, pleural effusion, or pneumothorax. Th e heart size is normal. IMPRESSION: 1. No acute cardiopulmonary disease. Reviewed, dictated and finalized at location B.
--- NOTE | ~2020-09-05 | CT_ITS ---
EXAMINATION: CT abdomen pelvis wo con DATE: 09/05/2020 15:28 INDICATION: History of renal transplant. Abdomen pain. TECHNIQUE: Computed tomography (CT) of the abdomen and pelvis was performed without intravenous contr ast. The dose-length product was 608.21 mGy-cm. Automated exposure control and iterative reconstructi on technique were employed. COMPARISON: CT dated 10/10/2014. FINDINGS: There is left lower lobe airspace consolidation, consistent with pneumonia. There are a few focal areas of patchy groundglass opacification in the right lower lobe. There is atherosclerosis. N o evidence for aneurysm. [place] kidneys are severely atrophic with the left [place] kidney containing a 12 mm cyst. There are b ilateral pelvic renal transplant kidneys with the right transplant kidney being somewhat atrophic con taining multiple renal stones and mild perinephric stranding. There are no left renal stones or hydro nephrosis. Bladder is unremarkable. Interval removal of left ureteral stent. Interval resolution of l eft perinephric stranding. Right perinephric stranding is not significantly changed, although right t ransplant kidney atrophy has progressed. No lymphadenopathy. Nonobstructive bowel gas pattern. Coloni c diverticula without evidence for diverticulitis. No abnormal pelvic masses or fluid collections. No free air or free fluid. The liver, spleen, pancreas and adrenal glands are unremarkable. Gallbladder is present. There is a n onspecific 9 mm lymph node left external iliac chain, likely reactive. IMPRESSION: 1. Patchy bilateral lower lobe airspace disease, most confluent in the left lower lobe, consistent wi th pneumonia. 2: Bilateral renal transplants in the pelvis with progression of atrophy of the right transplant kidn ey. No significant hydronephrosis. Reviewed, dictated and finalized at location A. IMPRESSION: 1. Patchy bilateral lower lobe airspace disease, most confluent in the left low er lobe, consistent with pneumonia. 2: Bilateral renal transplants in the pelvis with progression of atrophy of the right transplant kidney. No significant hydronephrosis.
[2020-09-05 10:27] VITALS: BP 140/85; PULSE 112; RESP 20; TEMP 36.5; O2SAT 100
[2020-09-05 10:40] LABS: Basophils Percent Auto 0.2 % (0.2-1.2); Eosinophils Absolute Auto 0.2 K/mm3 (0-0.3); Eosinophils Percent Auto 2.5 % (0-4.4); Hematocrit 35.4 % (42.0-52.0); Hemoglobin 12.3 g/dL (14.0-18.0); Immature Granulocyte Absolute 0.03 K/mm3 (0.00-0.031); Immature Granulocyte Percent A 0.3 % (0-0.5); Lymphocytes Percent Auto 6.5 % (18.3-44.2); Mean Corpuscular HGB Conc 34.7 g/dl (32-36); Mean Corpuscular Hemoglobin 39.9 pg (26-34); Mean Corpuscular Volume 114.9 fl (80-100); Mean Platelet Volume 8.8 fl (7.4-10.4); Monocytes Absolute Auto 0.6 K/mm3 (0.1-0.6); Monocytes Percent Auto 6.1 % (2.6-8.5); Neutrophils Absolute Auto 7.8 K/mm3 (1.3-6.7); Neutrophils Percent Auto 84.4 % (45.5-73.1); Platelet Count Result 329 k/mm3 (150-375); Red Blood Count 3.08 M/mm3 (4.6-6.20); White Blood Count 9.2 K/mm3 (4.5-10.0)
[2020-09-05 10:53] LABS: Alanine Aminotransferase 25 U/L (4-50); Albumin Level 3.7 g/dL (3.5-5.1); Alkaline Phosphatase 135 U/L (38-126); Anion Gap 9 mmol/L (8-16); Aspartate Amino Transferase 44 U/L (17-59); Bilirubin,Total 1.1 mg/dL (0.2-1.3); Blood Urea Nitrogen 13 mg/dL (9-20); Calcium 8.8 mg/dL (8.4-10.2); Carbon Dioxide 22 mmol/L (22-30); Chloride 105 mmol/L (98-107); Estimated CRCL calculation 68 ml/min; Estimated Glomerular Filt Rate > 60; Glucose 132 mg/dL (75-110); Potassium 4.4 mmol/L (3.4-5.0); Sodium 136 mmol/L (137-145)
--- NOTE | 2020-09-05 12:42 | ECG_ITS ---
Measurements Intervals [place] Rate: 88 P: 43 NH: 128 QRS: 14 QRSD: 82 T: 59 QT: 377 QTc: 457 Interpretive Statements SINUS RHYTHM NONSPECIFIC T-WAVE ABNORMALITY- HIGH LATERAL LEADS BASELINE ARTIFACT- I, III, AVL, V2 BORDERLINE ECG Electronically Signed On 09-05-2020 13:18:24 CDT by Alejandro Downey D.O.
[2020-09-05 12:45] VITALS: BP 125/77; PULSE 94; RESP 15; O2SAT 100
--- NOTE | 2020-09-05 12:45 | ED.GENADULT ---
HPI - General Adult General Chief complaint: Unspecified Stated complaint: gout pain Time Seen by Provider: 09/05/20 12:41 Source: patient Mode of arrival: ambulatory Limitations: no limitations History of Present Illness HPI narrative: Patient is a 40-year-old male with a history of Alport syndrome, renal transplant in 2008, 2018, hypertension, depression, anxiety, anemia, who presents for evaluation of diffuse body myalgias, abdominal pain and vomiting. Patient reports he has been feeling unwell for many weeks. He reports vomiting and diarrhea over the past 48 hours. He reports nonspecific abdominal pain. He denies chest pain or shortness of breath. No fever, but reports slight cough. No recent travel or history of Covid. Patient has been compliant with his transplant medications, states a few months ago he was diagnosed with a DVT in the right lower extremity but was not able to continue any anticoagulation due to financial constraints. Patient has missed multiple follow-up appointments with his transplant specialist at [facility] due to financial constraints. Per chart review, patient with COVID 12/16/19. Related Data Home Medications Medication Instructions Recorded Confirmed tacrolimus [Envarsus XR] 4 mg PO DAILY 12/16/19 01/06/20 Allergies Allergy/AdvReac Type Severity Reaction Status Date / Time azithromycin Allergy Intermediate Dyspnea / Verified 09/05/20 11:25 SOB clindamycin Allergy Intermediate Rash Verified 09/05/20 11:25 gentamicin Allergy Intermediate Dyspnea / Verified 09/05/20 11:25 SOB morphine Allergy Intermediate increased Verified 09/05/20 11:25 pain soap Allergy Intermediate Itching Verified 09/05/20 11:25 vancomycin Allergy Intermediate Rash Verified 09/05/20 11:25 Review of Systems Review of Systems: Narrative: CONSTITUTIONAL: Denies fever, chills, or sweats. EYES: Denies visual changes, redness, or discharge. ENT: Denies rhinorrhea, congestion, sore throat, or otalgia. CARDIOVASCULAR: Denies chest pain, palpitations, or edema. RESPIRATORY: Reports cough without dyspnea GASTROINTESTINAL: Reports abdominal pain, nausea and diarrhea GENITOURINARY: Denies dysuria or hematuria. SKIN: Denies rash or itching. MUSCULOSKELETAL: Denies back pain, reports diffuse joint pain and myalgias NEUROLOGIC: Denies headache, numbness, or weakness. PSYCHIATRIC: Reports depression PMFSH Past Medical History Medical History Alports syndrome Dialysis AV fistula infection left forearm Generalized anxiety disorder Hypertension Pneumonia due to COVID-19 virus Primary osteoarthritis involving multiple joints Tobacco use disorder Surgical History Surgical History History of kidney transplant x2 Family History Family History Mother Hypertension ESRD (end stage renal disease) Sibling ESRD (end stage renal disease) Heart disease Social History Social History Social History: patient stated that he still continues to smoke a half pack a cigarettes a day for at least the last 4 years. He lives with his parents but is trying to eval. He is and he has 2 children. He is disabled. He does use any alcohol or illicit drugs no marijuana use. Patient stated he has not smoked a cigarette last 5 days. Smoking packs per day: 0.5 Smoking cigarettes per day: 10.0 Years smoked: 4 Smoking pack-years: 2.00 Smoking status: Current some day smoker Tobacco type: cigarettes Alcohol intake: current Drinks per week: 3 Substance use: never Substance use type: does not use Gender identity (if verbalized by the patient): Male Spiritual care concerns: No Exam Narrative: Exam Narrative: GENERAL: Awake, alert, conversant HEAD: Normocephalic, atra
[2020-09-05 13:26] LABS: Lactic Acid Reflex 1.2 mmol/L (0.7-2.1)
[2020-09-05 13:33] LABS: CRP 6.5 mg/dL (<1.0)
[2020-09-05 13:40] LABS: Erythrocyte Sedimentation Rate 28 mm/hr (0-20)
[2020-09-05 13:41] LABS: Troponin I < 0.012 ng/mL (0.000-0.034)
[2020-09-05 16:09] VITALS: BP 155/108; PULSE 90; RESP 16; O2SAT 100
[2020-09-05 16:19] LABS: Add Urine Microscopic? YES; Appearance Urine Clear (Clear); Bilirubin Urine 1+ (Negative); Blood Urine Negative (Negative); Color Urine Amber (Yellow); Glucose Urine UA Negative (Negative); Ketones Urine Negative (Negative); Leukocyte Esterase Ur Trace LEU/UL (Negative); Mucus Urine Rare /lpf; Nitrate Urine Negative (Negative); Protein Urine 1+ mg/dL (Negative); RBC Urine 0-2 /hpf (0-2); Specific Grav Ur 1.026 (1.001-1.035); Squamous Epithelial Cell Urine Rare /hpf (Few); WBC Urine 0-3 /hpf
[2020-09-05] MEDS: oxyCODONE/ACETAMINOPHEN (*CRX) 5-325 MG TABLET 1 TABLET PO (16:33)
[2020-09-05 16:39] LABS: Amphetamine Screen Urine Negative (Negative); Barbiturate Screen Urine Negative (Negative); Benzodiazepines Screen Urine Negative (Negative); Cannabinoid Screen Urine Negative (Negative); Cocaine Screen Urine Negative (Negative); Methadone Screen Urine Negative (Negative); Opiate Screen Urine Negative (Negative); Phencyclidine Screen Urine Negative (Negative)
[2020-09-05 18:38] VITALS: BP 128/80; PULSE 95; RESP 18; O2SAT 100
[2020-09-05] MEDS: KETOROLAC 30 MG/ML VIAL (*BKC) IM (18:39)
[2020-09-05 18:55] LABS: Partial Thromboplastin Time 21.4 SECONDS (22.3-36.8); Prothrombin Time 13.9 Seconds (11.1-14.7)
[2020-09-05 19:11] VITALS: BP 130/77; PULSE 88; RESP 16; TEMP 37.1; O2SAT 100
[2020-09-05 23:43] LABS: SARS-CoV-2 RNA PCR Negative
[2020-09-08 14:43] LABS: Tacrolimus Prograf 17.6 mcg/L
== END 2020-09-05 19:12 | disposition home or self-care (01) ==
PROVIDERS: Emergency Provider Emergency Medicine; PCP Internal Medicine
DX: J18.9 Pneumonia, unspecified organism (principal); Z20.822 Contact with and (suspected) exposure to COVID-19; Q87.81 Alport syndrome; I10 Essential (primary) hypertension; M19.90 Unspecified osteoarthritis, unspecified site; F17.210 Nicotine dependence, cigarettes, uncomplicated; Z94.0 Kidney transplant status; Z79.899 Other long term (current) drug therapy
CPT/HCPCS: 36415; 71046; 74176; 80053; 80197; 80307; 81001; 83605; 84484; 85025; 85610; 85652; 85730; 86140; 93005; 96374; 99284; A9270; C9803; J1885; U0003; U0005

== ENCOUNTER 2021-07-17 19:15 | Emergency (ER) | payer MEDICARE, MEDICAID, SELFPAY ==
--- NOTE | ~2021-07-17 | XR_ITS ---
XR foot RT min 3V DATE: 07/17/2021 21:43 INDICATION: Fifth toe wound, pain TECHNIQUE: 4 views COMPARISON: None FINDINGS: There is mild osteoarthritis at the first metatarsophalangeal joint. No fracture or dislocation, periosteal reaction or bone destruction. IMPRESSION: Mild osteoarthritis at first metatarsophalangeal joint Reviewed, dictated and finalized at location A. ER APPRENTICE [employer]
--- NOTE | ~2021-07-17 | CT_ITS ---
EXAMINATION: CT abdomen pelvis wo con DATE: 07/18/2021 01:28 INDICATION: Abdominal pain, nausea, vomiting, diarrhea. Elevated liver function tests. TECHNIQUE: Computed tomography (CT) of the abdomen and pelvis was performed without intravenous contr ast. Automated exposure control and iterative reconstruction technique were employed. Exam dose: 406 .18 mGy-cm total exam DLP. COMPARISON: 09/05/2020 CT abdomen pelvis FINDINGS: There is discoid atelectasis or scarring in the dependent bilateral lower lobe bases. No in filtrate or consolidation is noted at the included lower lung zones. Normal heart size. Coronary shayla ry calcification. No pericardial or pleural effusion. The gallbladder is present. No pericholecystic fluid or fat stranding. No hepatic, splenic, pancreati c, and adrenal space-occupying mass lesion. No bile duct or pancreatic duct dilatation. There is severe atrophy of both [place] kidneys. There is an exophytic 1.3 cm cyst of the lower pole o f the left [place] kidney and a pinpoint lower pole [place] left kidney calculus. Bilateral lower quadrant transplant kidneys are noted with prominent atrophy and arterial calcificati on of the right transplant kidney. There is atherosclerotic calcification of the abdominal aorta but no aneurysm. No intraperitoneal or retroperitoneal or pelvic mass lesion or adenopathy is noted. Normal appendix. No bowel obstruction or intraperitoneal free air. Small fat-containing umbilical hernia. No suspicious osteolytic or osteoblastic lesions. IMPRESSION: Bilateral renal transplant kidneys, with atrophy and arterial calcification at the right transplant Severe atrophy of the [place] kidneys Normal appendix No bowel obstruction or free air Reviewed, dictated and finalized at Location A. Reviewed, dictated and finalized at location A. [employer] ACCOUNTING [employer]ER[employer] IMPRESSION: Bilateral renal transplant kidneys, with atrophy and arterial calc ification at the right transplant Severe atrophy of the [place] kidneys Normal appendix No bowel obstruction or free air
[2021-07-17 19:17] VITALS: BP 117/87; PULSE 92; RESP 18; TEMP 36.4; O2SAT 100
--- NOTE | 2021-07-17 19:24 | ECG_ITS ---
Measurements Intervals [place] Rate: 90 P: 29 MO: 145 QRS: 34 QRSD: 81 T: 31 QT: 356 QTc: 436 Interpretive Statements SINUS RHYTHM SEPTAL MYOCARDIAL INFARCTION , PROBABLY OLD [40+ ms Q WAVE IN V1/V2] NONSPECIFIC T-WAVE ABNORMALITY. ABNORMAL EKG COMPARED TO ECG 09/05/2020 13:11:16 SEPTAL INFARCTION NOW PRESENT Electronically Signed On 07-18-2021 9:04:32 SURGICAL NURSE PRACTITIONER by Rafy Case M.D.
--- NOTE | 2021-07-17 19:40 | PC.NURSE ---
Patient declines blood draw in triage, request to wait for a room.
--- NOTE | 2021-07-17 21:33 | ED.NAVMDI ---
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 Patient reports having several episodes of vomiting a day. He has been able to eat a few bites of food here and there and keep down his medications. He also reports having generalized weakness and occasional diarrhea, but denies any significant abdominal pain, fevers, chills, urinary symptoms, chest pain, shortness of breath, rectal bleeding, hematemesis. Patient also denies any sick contacts, exposure to COVID-19, or infectious symptoms. Per patient and family, he has been seen at [facility] 2 times in the last 2 weeks and also been seen by his primary care doctor twice without acute findings. Patient has been taking Zofran at home with minimal relief of his nausea. Patient also reports having a painful wound to his right fifth toe. He states he was prescribed Rolfe for this recently. <MELVI Wren Last Filed: 07/18/21 03:46> Related Data Home medications: Home Medications Medication Instructions Recorded Confirmed colchicine 0.3 mg PO DAILY PRN 07/17/21 hydrocodone-acetaminophen 1 tablet PO Q6H PRN 07/17/21 ondansetron 4 mg PO Q8H PRN 07/17/21 tacrolimus [Envarsus XR] 3 mg PO DAILY 07/17/21 trazodone 50 mg PO HS 07/17/21 warfarin 2.5 mg PO DAILY 07/17/21 <Macy Roberts PA-C - Last Filed: 07/18/21 03:46> Allergies/Adverse reactions: Allergies Allergy/AdvReac Type Severity Reaction Status Date / Time azithromycin Allergy Intermediate Dyspnea / Verified 07/17/21 19:22 SOB clindamycin Allergy Intermediate Rash Verified 07/17/21 19:22 gentamicin Allergy Intermediate Dyspnea / Verified 07/17/21 19:22 SOB morphine Allergy Intermediate increased Verified 07/17/21 19:22 pain soap Allergy Intermediate Itching Verified 07/17/21 19:22 vancomycin Allergy Intermediate Rash Verified 07/17/21 19:22 <Macy Roberts PA-C - Last Filed: 07/18/21 03:46> Review of Systems Review of Systems: CONSTITUTIONAL: Reports generalized weakness. Denies fever, chills, or sweats. ENT: Denies rhinorrhea, congestion, sore throat. CARDIOVASCULAR: Denies chest pain. RESPIRATORY: Denies cough or dyspnea. GASTROINTESTINAL: Reports N/V/D. Denies abdominal pain, rectal bleeding, hematemesis. GENITOURINARY: Denies dysuria or hematuria. SKIN: Reports wound to R 5th toe. MUSCULOSKELETAL: Denies back pain, joint pain, or myalgia. NEUROLOGIC: Denies headache, numbness, or weakness. <Macy Roberts PA-C - Last Filed: 07/18/21 03:46> All systems reviewed & are unremarkable except as noted in HPI and below <Macy Roberts PA-C - Last Filed: 07/18/21 03:46> [facility] Past Medical History Medical History: Medical History Alports syndrome Dialysis AV fistula infection left forearm Generalized anxiety disorder Hypertension Pneumonia due to COVID-19 virus Primary osteoarthritis involving multiple joints Tobacco use disorder <Macy Roberts PA-C - Last Filed: 07/18/21 03:46> Surgical History Surgical History: Surgical History History of kidney transplant x2 <Macy Roberts PA-C - Last Filed: 0
[2021-07-17] MEDS: ONDANSETRON INJ 4 MG/2 ML VIAL IV PUSH (22:56)
[2021-07-17] MEDS: SODIUM CHLORIDE 0.9% IV 500 ML 999 ML IV CONT (22:56)
[2021-07-17 23:10] VITALS: BP 127/94; BP 140/94; BP 147/93; PULSE 109; PULSE 63; PULSE 81
[2021-07-17 23:12] LABS: Basophils Percent Auto 0.4 % (0.2-1.2); Eosinophils Absolute Auto 0.2 K/mm3 (0-0.3); Hematocrit 39.2 % (42.0-52.0); Hemoglobin 13.7 g/dL (14.0-18.0); Immature Granulocyte Absolute 0.02 K/mm3 (0.00-0.031); Immature Granulocyte Percent A 0.4 % (0-0.5); Lymphocytes Absolute Auto 0.81 K/mm3 (0.9-3.2); Lymphocytes Percent Auto 16.2 % (18.3-44.2); Mean Corpuscular HGB Conc 34.9 g/dl (32-36); Mean Corpuscular Volume 102.9 fl (80-100); Mean Platelet Volume 10.2 fl (7.4-10.4); Monocytes Absolute Auto 0.4 K/mm3 (0.1-0.6); Monocytes Percent Auto 7.8 % (2.6-8.5); Neutrophils Absolute Auto 3.6 K/mm3 (1.3-6.7); Neutrophils Percent Auto 72.2 % (45.5-73.1); Platelet Count Result 307 k/mm3 (150-375); Red Blood Count 3.81 M/mm3 (4.6-6.20); Red Cell Distribution Width 16.8 % (11.5-14.5)
[2021-07-17 23:21] LABS: Add Urine Microscopic? YES; Appearance Urine Clear (Clear); Bacteria Urine Trace /hpf; Bilirubin Urine Negative (Negative); Blood Urine Negative (Negative); Color Urine Yellow (Yellow); Glucose Urine UA Negative (Negative); Ketones Urine Negative (Negative); Leukocyte Esterase Ur Negative LEU/UL (Negative); Mucus Urine Rare /lpf; Nitrate Urine Negative (Negative); Protein Urine Negative (Negative); RBC Urine 0-2 /hpf (0-2); Specific Grav Ur 1.021 (1.001-1.035); Squamous Epithelial Cell Urine Rare /hpf (Few); Urobilinogen Urine Negative mg/dL (<2.0); WBC Urine 0-3 /hpf
[2021-07-17 23:25] LABS: Alanine Aminotransferase 56 U/L (4-50); Albumin Level 3.4 g/dL (3.5-5.1); Alkaline Phosphatase 203 U/L (38-126); Anion Gap 7 mmol/L (8-16); Aspartate Amino Transferase 107 U/L (17-59); Bilirubin,Total 0.7 mg/dL (0.2-1.3); Blood Urea Nitrogen 12 mg/dL (9-20); Calcium 8.6 mg/dL (8.4-10.2); Carbon Dioxide 25 mmol/L (22-30); Chloride 106 mmol/L (98-107); Estimated CRCL calculation 81 ml/min; Estimated Glomerular Filt Rate > 60; Glucose 83 mg/dL (65-110); Lipase 58 U/L (23-300); Potassium 4.3 mmol/L (3.4-5.0); Sodium 138 mmol/L (137-145)
[2021-07-18 03:04] VITALS: BP 135/89; PULSE 76; RESP 16; O2SAT 95
[2021-07-18 03:40] VITALS: BP 123/68; PULSE 69; RESP 18; O2SAT 100
== END 2021-07-18 03:45 | disposition home or self-care (01) ==
PROVIDERS: Emergency Medicine; Emergency Provider Emergency Medicine
DX: L03.031 Cellulitis of right toe (principal); R11.2 Nausea with vomiting, unspecified; Z94.0 Kidney transplant status; F17.210 Nicotine dependence, cigarettes, uncomplicated; I10 Essential (primary) hypertension; F41.9 Anxiety disorder, unspecified
CPT/HCPCS: 36415; 73630; 74176; 80053; 81001; 83690; 85025; 93005; 96361; 96374; 99284; J2405; J7040